=== PATIENT | female | born 1995 | race American Indian/Alaskan Native ===

== ENCOUNTER 2019-07-16 15:55 | Emergency (ER) | payer MEDICAID, OTHER ==
--- NOTE | 2019-07-16 16:56 | Event Note ---
ED Screening Note Date of service: 07/16/19 Time: 16:54 ED Screening Note: This is a 23 y.o. F. that presents to the ER with sore throat and hoarseness for 1 week. This initial assessment/diagnostic orders/clinical plan/treatment(s) is/are subject to change based on patients health status, clinical progression and re- assessment by fellow clinical providers in the ED. Further treatment and workup at subsequent clinical providers discretion. Patient/guardian urged not to elope from the ED as their condition may be serious if not clinically assessed and managed. Initial orders include: Rapid strep
[2019-07-16 16:57] VITALS: BP 107/75
--- NOTE | 2019-07-16 19:54 | Emergency Department Report ---
Minor Respiratory - HPI Chief Complaint: Sore Throat Stated Complaint: SORE THROAT Time Seen by Provider: 07/16/19 16:53 Duration: 2 weeks Pain Location: Throat Severity: mild, moderate Minor Respiratory: Yes Rhinorrhea, Yes Sore Throat, Yes Able to Tolerate Fluids, Yes Sick Contacts, No Ear Pain, No Cough, No Hemoptysis, No Chest Pain, No Shortness of Breath, No Fever Other History: Ms. Warner is a 23 yo female who presents with 2 weeks of sore throat nasal congestion hoarsness. Just started flu cold medicine yesterday. Multiple sick contacts. ED Review of Systems ROS: Stated complaint: SORE THROAT Other details as noted in HPI Constitutional: malaise. denies: fever ENT: throat pain, congestion. denies: dental pain, hearing loss Respiratory: denies: cough, shortness of breath, wheezing Gastrointestinal: denies: abdominal pain, nausea, vomiting Skin: denies: rash, lesions Neurological: denies: headache ED Past Medical Hx - Past Medical History Previous Medical History?: No - Surgical History Past Surgical History?: No - Social History Smoking Status: Never Smoker Substance Use Type: None - Medications Home Medications: Home Medications Medication Instructions Recorded Confirmed Last Taken Type Vit-Fe Fumar-FA [ 1 tab PO QDAY #30 tablet 08/14/15 Unknown Rx Vitamin] metroNIDAZOLE 0.75% [Vandazole 1 applicator VG QHS #1 tube 08/14/15 Unknown Rx 0.75% VAGINAL] Amoxicillin [Amoxicillin TAB] 875 mg PO BID 7 Days #14 tablet 07/16/19 Unknown Rx Minor Respiratory Exam - Exam General: Vital signs noted. No distress. Alert and acting appropriately. HEENT: Yes Pharyngeal Erythema, Yes Moist Mucous Membranes, Yes Rhinorrhea, No Pharyngeal Exudates, No Conjuctival Injection Neck: Yes Supple Lungs: Yes Good Air Exchange, No Wheezes, No Ronchi, No Stridor, No Cough, No Labored Respirations, No Retractions, No Use of Accessory Muscles Heart: Yes Regular, No Murmur Abdomen: No Tenderness Skin: No Rash, No Edema Neurologic: Alert and oriented, no deficits. Musculoskeletal: Unremarkable. ED Course Vital Signs 07/16/19 16:54 Temperature 98.7 F Pulse Rate 110 H Respiratory 18 Rate Blood Pressure 107/75 O2 Sat by Pulse 100 Oximetry ED Medical Decision Making - Lab Data Laboratory Results - last 24 hr 07/16/19 Unknown Group A Strep Rapid Negative - Medical Decision Making acute viral pharyngitis/laryngitis, URI rx: amoxicillin for prolonged symptoms and possible sinusitis rapid strep negative Critical care attestation.: If time is entered above; I have spent that time in minutes in the direct care of this critically ill patient, excluding procedure time. ED Disposition Clinical Impression: Acute pharyngitis, Acute laryngitis Disposition: TO HOME OR SELFCARE Is pt being admited?: No Does the pt Need Aspirin: No Condition: Stable Instructions: Pharyngitis (ED), Laryngitis (ED) Prescriptions: Amoxicillin [Amoxicillin TAB] 875 mg PO BID 7 Days #14 tablet Referrals: [facility] [Outside] - 3-5 Days Forms: Work/School Release Form(ED)
== END 2019-07-16 20:03 | disposition home or self-care (01) ==
LOC: ED 15:55
DX: J02.9 Acute pharyngitis, unspecified (principal); J04.0 Acute laryngitis; Z79.899 Other long term (current) drug therapy
CPT/HCPCS: 87116; 87430; 99283

== ENCOUNTER 2022-02-02 20:07 | Emergency (ER) | payer SELFPAY | END 2022-02-02 20:30 | disposition left against medical advice (07) | LOC: ED 20:07 | DX: Z04.1 Encounter for examination and observation following transport accident (principal); Z53.21 Procedure and treatment not carried out due to patient leaving prior to being seen by health care provider; V89.2XXA Person injured in unspecified motor-vehicle accident, traffic, initial encounter; Y93.89 Activity, other specified; Y92.89 Other specified places as the place of occurrence of the external cause; Y99.8 Other external cause status ==